=== PATIENT | male | born 1960 | race Caucasian/White ===

== ENCOUNTER 2022-08-24 12:40 | Observation (INO) | payer OTHER ==
[~2022-08-24] VITALS: Ht 162.6 cm; Wt 108.4 kg
[2022-08-24 12:48] VITALS: BP_SYST 161
[2022-08-24] MEDS ORDERED: ASPIRIN 325 MG TABLET PO ONE (13:45)
[2022-08-24] MEDS ORDERED: NITROGLYCERIN 1 INCH (GM) OINT. TD ONE (13:45)
[2022-08-24 14:01] LABS: BASOPHILS # (AUTO) 0.1 K/uL (0.0-0.2); BASOPHILS % (AUTO) 1.1 % (0.0-2.0); EOSINOPHILS # (AUTO) 0.3 K/uL (0.0-0.4); EOSINOPHILS % (AUTO) 4.5 % (0.0-4.0); HEMATOCRIT 41.5 % (36-54); HEMOGLOBIN 14.1 g/dL (14.0-18.0); LYMPHOCYTES # (AUTO) 1.3 K/uL (1.0-5.5); LYMPHOCYTES % (AUTO) 22.3 % (20.5-51.5); MEAN CORPUSCULAR HEMOGLOBIN 31 pg (27-31); MEAN CORPUSCULAR HGB CONC 34 % (32-36); MEAN CORPUSCULAR VOLUME 90 fL (79.0-98.0); MONOCYTES # (AUTO) 0.5 K/uL (0.0-1.0); MONOCYTES % (AUTO) 7.8 % (1.7-9.3); NEUTROPHILS # (AUTO) 3.8 K/uL (1.8-7.7); NEUTROPHILS % (AUTO) 64.3 % (40.0-70.0); PLATELET COUNT (AUTO) 167 K/uL (130-430); RED BLOOD CELL COUNT(AUTO) 4.61 MIL/uL (4.2-6.2); RED CELL DISTRIBUTION WIDTH 12.7 % (9.0-15.0); WHITE BLOOD COUNT (AUTO) 5.9 K/uL (4.8-10.8)
[2022-08-24 14:22] LABS: ALANINE AMINOTRANSFERASE 41 U/L (12-78); ALBUMIN 3.5 g/dL (3.4-4.8); ANION GAP 9 (5-15); ASPARTATE AMINOTRANSFERASE 35 U/L (10-37); CALCIUM 8.7 mg/dL (8.4-11.0); CHLORIDE 105 mmol/L (98-107); CREATININE 2.24 mg/dL (0.55-1.30); GLUCOSE 130 mg/dL (70-99); TOTAL BILIRUBIN 0.4 mg/dL (0.0-1.0); UREA NITROGEN, BLOOD 27 mg/dL (8-21)
[2022-08-24 14:27] LABS: GFR AFRICAN AMERICAN 39 mL/min (>90)
[2022-08-24] MEDS ORDERED: ATENOLOL 25 MG TABLET(TENORMIN) PO ONE (14:30)
[2022-08-24] MEDS ORDERED: ALLO100T PO (16:31)
[2022-08-24] MEDS ORDERED: CARV6.2554 PO (16:31)
[2022-08-24] MEDS ORDERED: GLIP2.5T3 PO (16:31)
[2022-08-24] MEDS ORDERED: D5W 1,000 ML IV PRN (17:00)
[2022-08-24] MEDS ORDERED: INSULIN LISPRO SLIDING SCALE 100 UNITS/ML, 3 ML VIAL (humaLOG) SUBCUT PRN (17:00)
[2022-08-24] MEDS ORDERED: DEXTROSE 50% JECT 50 ML DISP.SYRIN IVP PRN (17:00)
[2022-08-24] MEDS ORDERED: ONDANSETRON HCL 4 MG/2 ML VIAL IVP PRN (17:00)
[2022-08-24] MEDS ORDERED: GLUCOSE (DEXTROSE) ORAL GEL -Adults PO PRN (17:00)
[2022-08-24] MEDS ORDERED: ACETAMINOPHEN 325 MG TABLET PO PRN ×2 (17:00→17:15)
[2022-08-24 22:40] VITALS: BP_SYST 146
[2022-08-24 22:57] VITALS: BP_SYST 157
[2022-08-24] MEDS: NACL 0.9% 1,000 ML IV SCH (23:35)
[2022-08-25 05:38] VITALS: BP_SYST 142
[2022-08-25 07:10] LABS: BASOPHILS # (AUTO) 0.1 K/uL (0.0-0.2); EOSINOPHILS # (AUTO) 0.3 K/uL (0.0-0.4); EOSINOPHILS % (AUTO) 5.5 % (0.0-4.0); HEMATOCRIT 39.3 % (36-54); HEMOGLOBIN 13.3 g/dL (14.0-18.0); LYMPHOCYTES # (AUTO) 1.5 K/uL (1.0-5.5); LYMPHOCYTES % (AUTO) 25.5 % (20.5-51.5); MEAN CORPUSCULAR HEMOGLOBIN 31 pg (27-31); MEAN CORPUSCULAR HGB CONC 34 % (32-36); MEAN CORPUSCULAR VOLUME 91 fL (79.0-98.0); MONOCYTES # (AUTO) 0.5 K/uL (0.0-1.0); MONOCYTES % (AUTO) 9.6 % (1.7-9.3); NEUTROPHILS # (AUTO) 3.3 K/uL (1.8-7.7); NEUTROPHILS % (AUTO) 58.4 % (40.0-70.0); PLATELET COUNT (AUTO) 149 K/uL (130-430); RED BLOOD CELL COUNT(AUTO) 4.34 MIL/uL (4.2-6.2); RED CELL DISTRIBUTION WIDTH 12.9 % (9.0-15.0); WHITE BLOOD COUNT (AUTO) 5.7 K/uL (4.8-10.8)
[2022-08-25 08:00] VITALS: BP_SYST 146
[2022-08-25 08:02] LABS: ALBUMIN 3.2 g/dL (3.4-4.8); CALCIUM 8.3 mg/dL (8.4-11.0); CREATININE 2.11 mg/dL (0.55-1.30); THYROID STIMULATING HORMONE 0.88 uIu/mL (0.34-4.82); TOTAL BILIRUBIN 0.6 mg/dL (0.0-1.0)
[2022-08-25] MEDS: ASPIRIN 81 MG TAB.CHEW PO SCH (08:18)
[2022-08-25 08:25] LABS: CHOLESTEROL 179 mg/dL (<200); HDL CHOLESTEROL 35 mg/dL (>45); TRIGLYCERIDES 266 mg/dL (30-150)
[2022-08-25] MEDS: NACL 0.9% 1,000 ML IV SCH ×2 (08:42→17:49)
[2022-08-25] MEDS ORDERED: CARVEDILOL 6.25 MG TABLET (COREG) PO ONE (10:00)
[2022-08-25 10:48] LABS: BILIRUBIN,URINE NEGATIVE (NEGATIVE); BLOOD, URINE 1+ (NEGATIVE); CLARITY/URINE CLEAR (CLEAR); COLOR,URINE YELLOW (YELLOW); GLUCOSE,URINE NEGATIVE (NEGATIVE); KETONES,URINE NEGATIVE (NEGATIVE); LEUKOCYTE ESTERASE ,URINE NEGATIVE (NEGATIVE); NITRITE, URINE NEGATIVE (NEGATIVE); PROTEIN URINE 2+ (NEGATIVE); UROBILINOGEN,URINE 0.2 (0.2-1.0)
[2022-08-25 11:01] LABS: BACTERIA,URINE RARE /HPF (None Seen); MUCUS,URINE 1+ /LPF (None Seen); RBC,URINE 0-3 /HPF (0-3); WBC,URINE 0-3 /HPF (0-3)
[2022-08-25 12:20] VITALS: BP_SYST 147
[2022-08-25 16:27] VITALS: BP_SYST 142
[2022-08-25 21:00] VITALS: BP_SYST 158
[2022-08-25] MEDS: CARVEDILOL 6.25 MG TABLET (COREG) PO SCH (21:42)
[2022-08-26] VITALS (8 sets, daily range): BP systolic 146–163
[2022-08-26] MEDS: NACL 0.9% 1,000 ML IV SCH ×2 (00:16→11:57)
[2022-08-26] MEDS ORDERED: ATORVASTATIN 20 MG TABLET PO SCH (09:00)
[2022-08-26] MEDS ORDERED: REGADENOSON 0.4 MG/5 ML SYRINGE IVP ONE (09:00)
[2022-08-26] MEDS: CARVEDILOL 6.25 MG TABLET (COREG) PO SCH (09:14)
[2022-08-26] MEDS: ASPIRIN 81 MG TAB.CHEW PO SCH (09:14)
[2022-08-26] MEDS ORDERED: hydrALAZINE HCL 20 MG/ML VIAL IVP ONE (17:00)
[2022-08-26] MEDS ORDERED: AMLO5TAB4 PO (18:36)
[2022-08-26] MEDS ORDERED: amLODIPine BESYLATE 5 MG TABLET PO ONE (18:45)
== END 2022-08-26 20:11 | disposition home or self-care (01) ==
LOC: SED 12:40 → STU 17:36
PROVIDERS: ADMIT Internal Medicine; ATTEND Internal Medicine
DX: R07.89 Other chest pain (principal); Z20.822 Contact with and (suspected) exposure to COVID-19; I12.9 Hypertensive chronic kidney disease with stage 1 through stage 4 chronic kidney disease, or unspecified chronic kidney disease; E11.22 Type 2 diabetes mellitus with diabetic chronic kidney disease; N18.4 Chronic kidney disease, stage 4 (severe); E66.9 Obesity, unspecified; G89.29 Other chronic pain; M54.9 Dorsalgia, unspecified; Z79.899 Other long term (current) drug therapy
CPT/HCPCS: 96361 ×3; 80053 ×2; 82962; 83880; 85025 ×2; 87081; 84484 ×2; 36415 ×2; 93005 ×2; 71045; 99285; 87426; 80061; 81000; 83690; 84443; 93306; 96374; 93017; 78452; G0378 ×3; A9500; J2785; J0360; J2405